=== PATIENT | female | born 1975 | race Caucasian/White ===

== ENCOUNTER 2016-06-13 15:51 | Emergency (ER) | payer OTHER ==
[2016-06-13 15:57] VITALS: RESP 16; TEMP 97.5
[2016-06-13] MEDS ORDERED: NS 1,000 ML IV ONE (16:07)
[2016-06-13] MEDS ORDERED: LORazepam 2 MG/ML INJ IVP ONE (16:07)
[2016-06-13] MEDS ORDERED: KETOROLAC 30 MG/1 ML SDV IVP ONE (16:07)
[2016-06-13] MEDS ORDERED: METOCLOPRAMIDE 10 MG/2 ML VIAL IVP ONE (16:07)
--- NOTE | 2016-06-13 16:12 | EDPHY ---
H & P Stated Complaint: R flank pain w/ urinary symptoms Time Seen by Provider: 06/13/16 16:00 HPI/ROS: CHIEF COMPLAINT: Right lower quadrant abdominal pain HISTORY OF PRESENT ILLNESS: 41-year-old female with history of chronic abdominal pain, has multiple emergency department visits for similar, has been essentially asymptomatic for several months and had her symptoms controlled, followed by [facility], in the ER complaining of acute right lower quadrant abdominal pain which started with relatively quick onset at 11:00 a.m. today. She is concerned may be secondary to her ovaries. Positive nausea vomiting. 1 episode of loose stool. No melena or hematochezia. 1 episode of increased frequency last evening now resolved. No dysuria or hematuria. No fever or chills. No flu-like symptoms . No vaginal bleeding or discharge PRIMARY CARE PROVIDER: [facility] REVIEW OF SYSTEMS: A ten point review of systems was performed and is negative with the exception of the items mentioned in the HPI PAST MEDICAL & SURGICAL HISTORY: ovarian torsion. Ovarian cyst. Chronic abdominal pain. Hypothyroid. Psoriasis. Depression/anxiety. SOCIAL HISTORY: nonsmoker PHYSICAL EXAM (Prior to examination, patient consented to physical exam, hands were washed and my usual and customary physical exam procedures followed) 1) GENERAL: Well-developed, well-nourished, alert and oriented. Appears uncomfortable . 2) HEAD: Normocephalic, atraumatic 3) HEENT: Pupils equal, round, reactive to light bilaterally. Sclera anicteric. Nasopharynx, oropharynx, clear, no lesions. Moist mucous membranes 4) NECK: Full range of motion, no meningeal signs. 5) LUNGS: Clear auscultation bilaterally, no wheezes, no rhonchi, no retractions. 6) HEART: Regular rate and rhythm, no murmur, no heave, no gallop. 7) ABDOMEN: guarding right lower quadrant, tender to palpation at McBurney's point , negative Brizuela's, negative Rovsing's, negative peritoneal sign, 8) MUSCULOSKELETAL: No peripheral edema or discoloration. 9) BACK: No CVA tenderness, . 10) SKIN: No rash, no petechiae. 11) Psychiatric: Patient is oriented X 3, there is no agitation. DIFFERENTIAL DIAGNOSIS: My differential diagnosis includes, but is not limited to, acute appendicitis, acute nephrolithiasis, acute cholecystitis, bowel obstruction, acute pancreatitis, ovarian torsion, ectopic , gastritis and urinary tract infection. The patient understands that this diagnosis is provisional and can never be 100% accurate. This is a partial list of diagnoses considered. These considerations are based on history, physical exam, past history and reassessment. - Personal History LMP (Females 10-55): 15-21 Days Ago Tetanus Vaccine Date: < 10 years - Medical/Surgical History Hx Asthma: No Hx Chronic Respiratory Disease: No Hx Diabetes: No Hx Cardiac Disease: No Hx Renal Disease: No Hx Cirrhosis: No Hx Alcoholism: No Hx HIV/AIDS: No Hx Splenectomy or Spleen Trauma: No Other PMH: hypothyroidism, psoriasis, depression/anxiety, OVARIAN TORSION/ KIDNEY STONES, migraines, chronic abdominal pain - Social History Smoking Status: Never smoked Constitutional: Initial Vital Signs Temperature (C) 36.4 C 06/13/16 15:55 Heart Rate 83 06/13/16 15:55 Respiratory Rate 16 06/13/16 15:55 Blood Pressure 117/71 06/13/16 15:55 O2 Sat (%) 93 06/13/16 15:55 O2 Delivery Mode Room Air Allergies/Adverse Reactions: No Known Allergies Allergy (Verified 01/21/16 15:01) Home Medications: Medication Instructions Recorded Thyroid [Warren Thyroid 60 MG (*)] 60 mg PO DAILY10 09/10/12 traZODone [traZODONE 100MG (*)] 100 mg PO HS PRN 06/23/13 Desvenlafaxine Succinate [Pristiq] 100 mg PO DAILY 12/10/15 SUMAtriptan [Imitrex Sc Injection] 6 mg SQ PRN PRN 12/10/15 buPROPion XL [Wellbutrin 150mg XL] 150 mg PO DAILY 12/10/15 clonazePAM [klonoPIN (*)] 1 mg PO BID 12/10/15 Promethazine HCl [Phenergan 12.5mg 12.5 mg PO Q6 PRN #30 tablet 12/11/15 tab] Promethazine HCl [Phenergan 12.5mg 12.5 mg PO Q6-8PRN PRN #15 tablet 12/21/15 tab] Zofran 12/21/15 oxyCODONE/APAP 5/325 [Percocet 1 - 2 tab PO Q4-6PRN PRN #20 tab 12/21/15 5/325 (*)] Cephalexin [Keflex (*)] 500 mg PO Q6 5 Days 12/27/15 Promethazine HCl [Phenergan Rectal] 25 mg NH Q6 PRN #10 suppr 01/22/16 Medical Decision Making - Diagnostics Imaging: Transabdominal and Transvaginal Pelvic Ultrasound History: Pelvic pain. Comparison: Pelvic ultrasound October 09, 2015. Findings: Transabdominal: The uterus measures 8.1 x 5.8 x 3.9 cm. The right ovary is normal. The left ovary is not visible. The bladder is normal. Transvaginal: There are no fibroids. The endometrium is homogeneous and measures 7 mm. The left ovary is not visible. The right ovary measures 3.4 x 2.5 x 2.7 cm. No adnexal masses are identified. Normal arterial blood flow is documented to the right ovary by Doppler ultrasound. There is no free fluid. Impression: 1. No visible etiology for the patient's pain. 2. Nonvisualization of the left ovary. Findings discussed with Shiv Handy PA-C, today at 1710 hours. Dictated By: Pavel Klein MD Images reviewed by myself 5:25 p.m.: CT renal study interpreted by radiologist shows a normal retrocecal appendix. No nephro/ureterolithiasis, normal study. Images reviewed by myself ED Course/Re-evaluation: 4:14 p.m.: I have evaluated this patient reviewed her old medical records. She notes relatively sudden onset right lower quadrant pain with history of ovarian torsion and ovarian cyst. Plan will be pelvic ultrasound, analgesia, re -evaluation. 5:30 p.m.: Re-evaluation. She appears significantly more comfortable. Discussed her diagnostic results showing normal appendix, normal right ovary, no nephrolithiasis. We discussed possibility of a passed stone. At this time, I think that acute surgical abdominal/ pathology is less likely in this patient at this time. At this time after analgesia in the emergency department she is feeling improvement in symptoms. She would like to be discharged. I have provided her with my usual and customary strict return precautions. Recommend she follow up with [facility]. She feels comfortable being discharged. - Data Points Laboratory Results: Laboratory Results 06/13/16 16:09 06/13/16 16:09 06/13/16 16:09 WBC 9.39 10^3/uL (3.80-9.50) RBC 5.05 10^6/uL (4.18-5.33) Hgb 12.7 g/dL (12.6-16.3) Hct 38.5 % (38.0-47.0) MCV 76.2 L fL (81.5-99.8) MCH 25.1 L pg (27.9-34.1) MCHC 33.0 g/dL (32.4-36.7) RDW 14.2 % (11.5-15.2) Plt Count 391 10^3/uL (150-400) MPV 9.7 fL (8.7-11.7) Neut % (Auto) 48.2 % (39.3-74.2) Lymph % (Auto) 44.1 % (15.0-45.0) Tift % (Auto) 7.5 % (4.5-13.0) Eos % (Auto) 0.0 L % (0.6-7.6) Baso % (Auto) 0.1 L % (0.3-1.7) Nucleat RBC Rel Count 0.0 % (0.0-0.2) Absolute Neuts (auto) 4.53 10^3/uL (1.70-6.50) Absolute Lymphs (auto) 4.14 H 10^3/uL (1.00-3.00) Absolute Monos (auto) 0.70 10^3/uL (0.30-0.80) Absolute Eos (auto) 0.00 L 10^3/uL (0.03-0.40) Absolute Basos (auto) 0.01 L 10^3/uL (0.02-0.10) Absolute Nucleated RBC 0.00 10^3/uL (0-0.01) Immature Gran % 0.1 % (0.0-1.1) Immature Gran # 0.01 10^3/uL (0.00-0.10) Sodium 138 mEq/L (134-144) Potassium 4.4 mEq/L (3.5-5.2) Chloride 102 mEq/L (97-110) Carbon Dioxide 24 mEq/l (22-31) Anion Gap 12 mEq/L (8-16) BUN 12 mg/dL (7-23) Creatinine 0.6 mg/dL (0.6-1.0) Estimated GFR > 60 Glucose 93 mg/dL (70-100) Calcium 8.9 mg/dL (8.5-10.4) Total Bilirubin 0.3 mg/dL (0.1-1.4) Conjugated Bilirubin 0.2 mg/dL (0.0-0.5) Unconjugated Bilirubin 0.1 mg/dL (0.0-1.1) AST 25 IU/L (14-46) ALT 37 IU/L (9-52) Alkaline Phosphatase 92 IU/L (38-126) Total Protein 7.5 g/dL (6.3-8.2) Albumin 3.8 g/dL (3.5-5.0) Lipase 47.0 IU/L (23-300) Beta HCG, Qual NEGATIVE Urine Color YELLOW Urine Appearance CLEAR Urine pH 6.0 (5.0-7.5) Ur Specific Willits 1.014 (1.002-1.030) Urine Protein NEGATIVE (NEGATIVE) Urine Ketones NEGATIVE (NEGATIVE) Urine Blood 2+ H (NEGATIVE) Urine Nitrate NEGATIVE (NEGATIVE) Urine Bilirubin NEGATIVE (NEGATIVE) Urine Urobilinogen NEGATIVE EU (0.2-1.0) Ur Leukocyte Esterase NEGATIVE (NEGATIVE) Urine RBC 25-50 H /hpf (0-3) Urine WBC 1-3 /hpf (0-3) Ur Epithelial Cells TRACE /lpf (NONE-1+) Ur Culture Indicated? NOT INDICATED (NI) Urine Glucose NEGATIVE (NEGATIVE) Medications Given: Discontinued Medications Sodium Chloride (Ns) 1,000 mls @ 0 mls/hr IV ONCE ONE PRN Reason: Wide Open Stop: 06/13/16 16:08 Last Admin: 06/13/16 16:09 Dose: 1,000 mls Ketorolac Tromethamine (Toradol) 30 mg IVP EDNOW ONE Stop: 06/13/16 16:08 Last Admin: 06/13/16 16:16 Dose: 30 mg Lorazepam (Ativan Injection) 1 mg IVP EDNOW ONE Stop: 06/13/16 16:08 Last Admin: 06/13/16 16:16 Dose: 1 mg Metoclopramide HCl (Reglan Injection) 10 mg IVP EDNOW ONE Stop: 06/13/16 16:08 Last Admin: 06/13/16 16:17 Dose: 10 mg Departure - Departure Disposition: Home, Routine, Self-Care Clinical Impression: Chronic abdominal pain, Abdominal pain Condition: Good Instructions: Abdominal Pain (ED) Additional Instructions: Seek immediate medical attention if you develop new or worsening symptoms, if you develop fevers, chills, inability to tolerate oral intake or any other symptoms that concerns you. Referrals: Therese Sarah MD [Primary Care Provider] - 1 day without fail [facility] [Provider Group] - 1 day without fail
[2016-06-13 16:20] LABS: % IMMATURE GRANULYOCYTES 0.1 % (0.0-1.1); ABSOLUTE IMMATURE GRANULOCYTES 0.01 10^3/uL (0.00-0.10); ADD DIFF? NO; ADD MORPH? NO; ADD SCAN? NO; ATYPICAL LYMPHOCYTE FLAG 40 (0-99); FRAGMENT RBC FLAG 0 (0-99); HEMATOCRIT 38.5 % (38.0-47.0); HEMOGLOBIN 12.7 g/dL (12.6-16.3); LEFT SHIFT FLG 0 (0-99); LIPEMIA HEMOLYSIS FLAG 80 (0-99); MEAN CELL HEMOGLOBIN 25.1 pg (27.9-34.1); MEAN CELL VOLUME 76.2 fL (81.5-99.8); MEAN PLATELET VOLUME 9.7 fL (8.7-11.7); PLATELET CLUMPS FLAG 20 (0-99); PLATELET COUNT 391 10^3/uL (150-400); RED BLOOD CELL COUNT 5.05 10^6/uL (4.18-5.33); RED CELL DISTRIBUTION WIDTH 14.2 % (11.5-15.2)
[2016-06-13 16:24] LABS: COLOR YELLOW; LEUKOCYTE ESTERASE,URINE NEGATIVE (NEGATIVE); NITRITE,URINE NEGATIVE (NEGATIVE)
[2016-06-13 16:25] LABS: RBC,URINE 25-50 /hpf (0-3)
[2016-06-13 16:35] LABS: ALANINE AMINOTRANSFERASE 37 IU/L (9-52); ALBUMIN 3.8 g/dL (3.5-5.0); ALKALINE PHOSPHATASE 92 IU/L (38-126); ANION GAP 12 mEq/L (8-16); ASPARTATE AMINOTRANSFERASE 25 IU/L (14-46); BILIRUBIN,TOTAL 0.3 mg/dL (0.1-1.4); BILIRUBIN-CONJUGATED 0.2 mg/dL (0.0-0.5); BILIRUBIN-UNCONJUGATED 0.1 mg/dL (0.0-1.1); CALCIUM 8.9 mg/dL (8.5-10.4); CARBON DIOXIDE 24 mEq/l (22-31); CHLORIDE 102 mEq/L (97-110); CREATININE 0.6 mg/dL (0.6-1.0); GLOMERULAR FILTRATION RATE > 60; GLUCOSE 93 mg/dL (70-100); POTASSIUM 4.4 mEq/L (3.5-5.2); SODIUM 138 mEq/L (134-144); TOTAL PROTEIN 7.5 g/dL (6.3-8.2)
--- NOTE | 2016-06-13 17:13 | US ---
Appendiceal Ultrasound History: Right lower quadrant pain. Comparison: CT abdomen and pelvis October 10, 2015. Technique: Limited ultrasound of the right lower quadrant is performed. Findings: The appendix is not visualized. There is no free fluid. Impression: Nonvisualization of the appendix with no secondary evidence of appendicitis. Findings discussed with Cari Handy today at 1710 hours.
--- NOTE | 2016-06-13 17:17 | US ---
Transabdominal and Transvaginal Pelvic Ultrasound History: Pelvic pain. Comparison: Pelvic ultrasound October 09, 2015. Findings: Transabdominal: The uterus measures 8.1 x 5.8 x 3.9 cm. The right ovary is normal. The left ovary is not visible. The bladder is normal. Transvaginal: There are no fibroids. The endometrium is homogeneous and measures 7 mm. The left ovary is not visible. The right ovary measures 3.4 x 2.5 x 2.7 cm. No adnexal masses are identified. Norm al arterial blood flow is documented to the right ovary by Doppler ultrasound. There is no free fluid . Impression: 1. No visible etiology for the patient's pain. 2. Nonvisualization of the left ovary. Findings discussed with Shiv Handy PA-C, today at 1710 hours.
[2016-06-13 17:31] VITALS: BP 118/69; PULSE 72; O2SAT 96
--- NOTE | 2016-06-13 17:49 | CT ---
CT Abdomen and Pelvis Unenhanced (Renal Stone Protocol) Indication: Right flank pain. Comparison: Appendiceal and pelvic ultrasound same day, CT abdomen and pelvis October 10, 2015. Technique: Axial unenhanced CT imaging was performed through the abdomen and pelvis without contrast . Dose reduction techniques were utilized. Findings: Abdomen: The lung bases are clear. Heart size is upper normal. The imaged noncontrast portions of the liver, spleen, gallbladder, pancreas and adrenal glands are un remarkable. The kidneys have a normal unenhanced appearance. No renal or ureteral stones are identif ied. There is no obstructive uropathy. Moderate stool is present in the colon. The colon and small bowel have normal caliber. The appendix i s normal. The aorta is normal caliber. A small fat containing umbilical hernia is stable. A mild annular bulge is present at L5-S1 with minimal spinal canal narrowing. Pelvis: No bladder or distal ureteral calcifications are identified. Uterine contour is normal. No a dnexal masses are identified. Impression: 1. No definite etiology for the patient's pain. 2. Constipation. 3. Additional findings as above. Findings discussed with Shiv Handy PA-C on June 13, 2016 at 1724 hours. Attention: This CT examination is specifically designed to evaluate patients who are clinically susp ected of having acute obstructive uropathy. This examination does not use radiographic contrast, and as such, provides only a limited evaluation of the abdomen, pelvis and retroperitoneum. If there i s further clinical suspicion for pathological conditions other than obstructive uropathy, a complete CT evaluation of the abdomen and pelvis utilizing intravenous, oral, and rectal contrast should be co nsidered.
== END 2016-06-13 17:37 | disposition home or self-care (01) ==
DX: R10.31 Right lower quadrant pain (principal); G89.29 Other chronic pain
CPT/HCPCS: 96374; J1885; J2765

== ENCOUNTER 2016-07-14 08:24 | Emergency (ER) | payer OTHER ==
--- NOTE | 2016-07-14 08:39 | UCPHY ---
H & P Patient Type: Established HPI/ROS: CHIEF COMPLAINT: Productive cough. HISTORY OF PRESENT ILLNESS: The patient is a 41-year-old female who presents with 2 weeks of productive cough. She had fever for the first 3 days. The cough is productive with brownish sputum. She believes it has gotten worse over the past 2 weeks. The cough is keeping her awake at night. She denies sinus pain, sore throat. She has no prior pulmonary history. She has been treating her symptoms with Mucinex decongestant and Robitussin. REVIEW OF SYSTEMS: Constitutional: No fever, no chills. Eyes: No diplopia. ENT: No sore throat. Cardiovascular: No chest pain, no palpitations. Respiratory: See HPI. Gastrointestinal: No nausea vomiting or diarrhea. No abdominal pain. Genitourinary: No hematuria or frequency. Musculoskeletal: No back pain. Skin: No rashes. Neurological: No headache. 10 point ROS otherwise negative Past Medical/Surgical History: Hypothyroidism, depression, anxiety, ovarian cyst, ovarian torsion. Social History: Nonsmoker. Smoking Status: Never smoked Physical Exam: General Appearance: Alert, no distress. Afebrile. Normal phonation. No respiratory distress. Eyes: Pupils equal and round no pallor or injection. No icterus ENT, Mouth: Mucous membranes moist. Pharynx not erythematous and without exudate. TM Clear. Sinuses nontender. Neck: No adenopathy. Supple. No JVD. Trachea in midline. Respiratory: There are no retractions, lungs are clear to auscultation. Cardiovascular: Regular rate and rhythm. Skin: Warm and dry, no rashes. Musculoskeletal: No joint swelling. Extremities: No edema. Psychiatric: nl affect Constitutional: Initial Vital Signs Temperature (C) 36.9 C 07/14/16 08:47 Heart Rate 85 07/14/16 08:47 Respiratory Rate 18 07/14/16 08:47 Blood Pressure 108/71 07/14/16 08:47 O2 Sat (%) 95 07/14/16 08:47 O2 Delivery Mode Room Air Allergies/Adverse Reactions: No Known Allergies Allergy (Verified 01/21/16 15:01) Home Medications: Medication Instructions Recorded Thyroid [Gordon Thyroid 60 MG (*)] 60 mg PO DAILY10 09/10/12 traZODone [traZODONE 100MG (*)] 100 mg PO HS PRN 06/23/13 Desvenlafaxine Succinate [Pristiq] 100 mg PO DAILY 12/10/15 SUMAtriptan [Imitrex Sc Injection] 6 mg SQ PRN PRN 12/10/15 buPROPion XL [Wellbutrin 150mg XL] 150 mg PO DAILY 12/10/15 clonazePAM [klonoPIN (*)] 1 mg PO BID 12/10/15 Albuterol [Proventil Inhaler HFA 2 puffs IH QID #1 mdi 07/14/16 (*)] Benzonatate 200 mg PO TID PRN #28 capsule 07/14/16 Medical Decision Making - Diagnostics Imaging: Chest x-ray reviewed by me reveals no acute cardiopulmonary process. Dr. Fermin , radiology, reports: Clear lungs. No pneumonia. ED Course/Re-evaluation: Chest x-ray ordered. Chest x-ray: Two view chest. Interpreted by radiologist. Films reviewed by me on the PACS system. Normal mediastinum. Normal lung delgado. No effusions. Normal chest. [place] Prescription Drug Monitoring Program checked: count less medications including Nucynta and recently on June 20 medications including when sent as well as Vicodin extra-strength most recently. Drug interaction program queried and benzonatate does not interact with her medications however Delsym does. Thus I recommend she avoid any over-the- counter cold products Differential Diagnosis: Differential diagnosis includes but is not limited to the following: URI, pharyngitis, strep pharyngitis, otitis media, sinusitis, bronchitis, pneumonia. Departure - Departure Disposition: Home, Routine, Self-Care Clinical Impression: Upper respiratory infection Qualifiers: URI type: unspecified viral URI Qualified Code(s): J06.9 - Acute upper respiratory infection, unspecified; B97.89 - Other viral agents as the cause of diseases classified elsewhere Condition: Good Instructions: Upper Respiratory Infection (ED) Additional Instructions: Drink plenty of fluids and be sure to get rest. Follow up with your primary care provider in the next 2-3 days if symptoms are not improving. Return for any serious worsening of condition. Do not take [id number] cold products as able interact with her medications. [id number] cold products typically of dextromethorphan which is the agent I am concerned about Referrals: Therese Sarah MD [Primary Care Provider] - As per Instructions Prescriptions: Albuterol [Proventil Inhaler HFA (*)] 2 puffs IH QID #1 mdi Benzonatate 200 mg PO TID PRN #28 capsule PRN Reason: Cough, Moderate - PQRS PQRS Measurement: Does not apply. Report Scribed for: Danish De Jesus Report Scribed by: Aung Groves Date of Report: 07/14/16 Time of Report: 08:50 Physician Review and Approval Statement: 07/14/16 09:23 Portions of this note were transcribed by a medical referral coordinator. I personally performed a history, physical exam, medical decision making, and confirmed accuracy of information the transcribed note.
[2016-07-14 08:54] VITALS: BP 108/71; PULSE 85; RESP 18; TEMP 98.5; O2SAT 95
== END 2016-07-14 10:25 | disposition home or self-care (01) ==
LOC: CED 08:24
DX: J06.9 Acute upper respiratory infection, unspecified (principal)
CPT/HCPCS: 71020-PO; G0463-PO